=== PATIENT | male | born 1985 | race Caucasian/White ===

== ENCOUNTER 2020-11-16 10:22 | Emergency (ER) | payer OTHER ==
[~2020-11-16] VITALS: Ht 182.9 cm; Wt 68.0 kg
[~2020-11-16 10:22] MED LIST: IBUPROFEN 800800 M1 PO; NO HOME MEDS; NORCO 5-325 TA1 EACH PO; PENICILLIN VK500 M1 PO; PERIDEX 0.12%473 M1 SSP
[2020-11-16 10:39] VITALS: BP 112/72
== END 2020-11-16 11:39 | disposition home or self-care (01) ==
LOC: ER 10:22
DX: S93.401A Sprain of unspecified ligament of right ankle, initial encounter (principal); X58.XXXA Exposure to other specified factors, initial encounter; Y93.A3 Activity, aerobic and step exercise; Y92.89 Other specified places as the place of occurrence of the external cause; Y99.8 Other external cause status